=== PATIENT | female | born 1980 | race African-American/Black ===

== ENCOUNTER 2017-08-15 04:22 | Emergency (ER) | payer OTHER ==
[2017-08-15] MEDS ORDERED: diphenhydrAMINE 50 MG CAP ONE (04:54)
== END 2017-08-15 05:25 | disposition home or self-care (01) ==
LOC: ERS 04:22
DX: K02.9 Dental caries, unspecified (principal); I10 Essential (primary) hypertension; F41.9 Anxiety disorder, unspecified; Z87.891 Personal history of nicotine dependence; Z79.899 Other long term (current) drug therapy
CPT/HCPCS: 99283

== ENCOUNTER 2017-08-20 11:43 | Emergency (ER) | payer OTHER ==
[2017-08-20 13:12] LABS: ALT (SGPT) 10 U/L (8-55); AST (SGOT) 16 U/L (5-34); Albumin 4.4 g/dL (3.5-5.0); Alkaline Phosphatase 72 U/L (40-150); Anion Gap 13 mmol/L (10-20); BUN (Urea Nitrogen) 9 mg/dL (7.0-18.7); Bilirubin, Total 0.5 mg/dL (0.2-1.2); Calc. Creatinine Clearance 0 mL/min (70-130); Calcium 9.9 mg/dL (7.8-10.44); Carbon Dioxide 25 mmol/L (22-29); Chloride 105 mmol/L (98-107); Estimated GFR-MDRD Greater than 90; Globulin 4.1 g/dL (2.4-3.5); Glucose 92 mg/dL (70-105); Potassium 3.4 mmol/L (3.5-5.1); Protein, Total 8.5 g/dL (6.0-8.3); Sodium 140 mmol/L (136-145)
[2017-08-20 13:17] LABS: Hemoglobin 10.4 g/dL (12.0-16.0); Mean Corpuscular HGB CONC 31.7 g/dL (32.0-36.0); Mean Corpuscular Hemoglobin 22.4 pg (27.0-31.0); Mean Corpuscular Volume 70.8 fl (81.0-99.0); Mean Platelet Volume 8.2 fL (7.4-10.4); Platelet Count 292 thou/uL (130-400); RBC Distribution Width 15.4 % (11.5-14.5); Red Blood Cell (RBC) Count 4.64 mill/uL (4.20-5.40); White Blood Cell (WBC) Count 6.4 thou/uL (4.8-10.8)
[2017-08-20 13:28] LABS: #Eosinphils 0.1 thou/uL (0.0-0.7); #Lymphocytes 1.5 thou/uL (1.20-3.40); #Monocytes 0.4 thou/uL (0.11-0.59); #Neutrophils 4.4 thou/uL (1.40-6.50); %Basophils 0.3 % (0.0-1.0); %Eosinophils 0.8 % (0.0-10.0); %Lymphocytes 23.3 % (21.0-51.0); %Monocytes 6.1 % (0.0-10.0); %Neutrophils 69.4 % (42.0-75.0); Anisocytosis SLIGHT = 6-15 cells (100X) (0-5/hpf); Hypochromia SLIGHT = 6-15 cells (100X) (0-5/hpf); MDiff Complete? YES; Microcytosis SLIGHT = 6-15 cells (100X) (0-5/hpf); Ovalocytes SLIGHT = 2-5 cells (100X) (0-1/hpf); PLT Morphology Comment Appears Adequate
== END 2017-08-20 13:47 | disposition home or self-care (01) ==
LOC: ERS 11:43
DX: K08.89 Other specified disorders of teeth and supporting structures (principal); D64.9 Anemia, unspecified; I10 Essential (primary) hypertension; F41.9 Anxiety disorder, unspecified; Z87.891 Personal history of nicotine dependence
CPT/HCPCS: 36415; 80053; 85025

== ENCOUNTER 2017-08-21 08:15 | Emergency (ER) | payer OTHER ==
[2017-08-21] MEDS ORDERED: Ketorolac Tromethamine 60 MG/2 ML VIAL ONE (09:04)
[2017-08-21] MEDS ORDERED: Acetaminophen 500 MG TAB ONE (09:04)
[2017-08-21] MEDS ORDERED: Acetaminophen 325 MG/10.15 ML UDCUP ONE (10:02)
== END 2017-08-21 10:15 | disposition home or self-care (01) ==
LOC: ERS 08:15
DX: K02.9 Dental caries, unspecified (principal); K03.81 Cracked tooth; I10 Essential (primary) hypertension; F41.9 Anxiety disorder, unspecified; D64.9 Anemia, unspecified; Z87.891 Personal history of nicotine dependence; Z79.899 Other long term (current) drug therapy; Z71.6 Tobacco abuse counseling
CPT/HCPCS: 36415; 80053; 85025; 96372; 99283; 99406; J1885

== ENCOUNTER 2017-09-16 19:18 | Emergency (ER) | payer OTHER ==
[2017-09-16] MEDS ORDERED: Ketorolac Tromethamine 30 MG/ML VIAL ONE (22:37)
== END 2017-09-16 23:06 | disposition home or self-care (01) ==
LOC: ERS 19:18
DX: K02.9 Dental caries, unspecified (principal); D64.9 Anemia, unspecified; I10 Essential (primary) hypertension; F41.9 Anxiety disorder, unspecified; Z87.891 Personal history of nicotine dependence; Z79.899 Other long term (current) drug therapy
CPT/HCPCS: 96372; J1885

== ENCOUNTER 2017-12-09 02:21 | Emergency (ER) | payer OTHER, SELFPAY | END 2017-12-09 02:47 | disposition home or self-care (01) | LOC: ERS 02:21 | DX: A69.1 Other Vincent's infections (principal); F41.9 Anxiety disorder, unspecified; D64.9 Anemia, unspecified; I10 Essential (primary) hypertension; E51.9 Thiamine deficiency, unspecified; Z87.891 Personal history of nicotine dependence | CPT/HCPCS: 99283 ==

== ENCOUNTER 2018-01-30 04:13 | Emergency (ER) | payer SELFPAY ==
[2018-01-30] MEDS ORDERED: Ketorolac Tromethamine 30 MG/ML VIAL ONE (04:53)
[2018-01-30] MEDS ORDERED: Lidocaine Viscous Sol 2% 15 ml UD Cup ONE (05:16)
== END 2018-01-30 05:21 | disposition home or self-care (01) ==
LOC: ERS 04:13
DX: K02.9 Dental caries, unspecified (principal); I10 Essential (primary) hypertension; D64.9 Anemia, unspecified; E51.9 Thiamine deficiency, unspecified; Z87.891 Personal history of nicotine dependence
CPT/HCPCS: 96372; J1885

== ENCOUNTER 2018-07-27 20:05 | Emergency (ER) | payer SELFPAY ==
[2018-07-27] MEDS ORDERED: Ketorolac Tromethamine 60 MG/2 ML VIAL ONE (20:48)
[2018-07-27 20:59] LABS: #Eosinphils 0.1 thou/uL (0.0-0.7); #Lymphocytes 0.9 thou/uL (1.20-3.40); #Monocytes 0.2 thou/uL (0.11-0.59); #Neutrophils 3.9 thou/uL (1.40-6.50); %Basophils 0.1 % (0.0-1.0); %Eosinophils 1.3 % (0.0-10.0); %Lymphocytes 17.7 % (21.0-51.0); %Monocytes 4.2 % (0.0-10.0); %Neutrophils 76.6 % (42.0-75.0); Hemoglobin 10.9 g/dL (12.0-16.0); Mean Corpuscular HGB CONC 32.7 g/dL (32.0-36.0); Mean Corpuscular Hemoglobin 27.6 pg (27.0-31.0); Mean Corpuscular Volume 84.4 fL (78.0-98.0); Platelet Count 279 thou/uL (130-400); RBC Distribution Width 12.8 % (11.5-14.5); Red Blood Cell (RBC) Count 3.94 mill/uL (4.20-5.40)
[2018-07-27 21:07] LABS: Anion Gap 11 mmol/L (10-20); BUN (Urea Nitrogen) 7 mg/dL (7.0-18.7); Calc. Creatinine Clearance 0 mL/min (70-130); Calcium 9.3 mg/dL (7.8-10.44); Carbon Dioxide 24 mmol/L (22-29); Chloride 106 mmol/L (98-107); Estimated GFR-MDRD Greater than 90; Glucose 106 mg/dL (70-105); Potassium 3.4 mmol/L (3.5-5.1); Sodium 138 mmol/L (136-145)
[2018-07-27 21:08] LABS: BHCG - Serum Negative (NEGATIVE); Pregs Control Background? CLEAR/WHITE (CLR/WHITE); Pregs Control Bar Appear? YES (CONTROL BAR)
== END 2018-07-27 21:28 | disposition home or self-care (01) ==
LOC: ERS 20:05
DX: K02.9 Dental caries, unspecified (principal); D64.89 Other specified anemias; I10 Essential (primary) hypertension; F41.9 Anxiety disorder, unspecified; E51.9 Thiamine deficiency, unspecified; Z87.891 Personal history of nicotine dependence
CPT/HCPCS: 36415; 80048; 84703; 85025; 96372; J1885

== ENCOUNTER 2019-01-09 12:17 | Outpatient (CLI) | payer MEDICAID ==
--- NOTE | 2019-01-09 13:17 | ULT ---
Thyroid ultrasound: 01/09/2019 COMPARISON: 09/05/2015 HISTORY: Thyroid nodule TECHNIQUE: Multiplanar grayscale sonographic imaging of the thyroid gland obtained. FINDINGS: Thyroid isthmus measures 2 mm in AP dimension. The right lobe measures 5.7 x 2.9 x 2.9 cm and the left lobe measures 5.1 x 1.6 x 1.3 cm. No nodule i s noted within the isthmus or left lobe. There is a dominant primarily solid but partially cystic heterogeneous nodule within the right lobe o f the thyroid gland measuring 3.7 right 2.8 x 2.4 cm, increased in size when compared to the prior study at which time it measured approximately 2.0 x 2.4 x 2.7 cm. IMPRESSION: TI-Rads category 4-moderately suspicious. Dominant nodule within the right lobe has grow n since the prior study as well. Given size greater than 1.5 cm, fine-needle aspiration advised.
== END 2019-01-09 12:18 | disposition home or self-care (01) ==
LOC: BICULT 12:17
PROVIDERS: ATTEND Internal Medicine
DX: E04.1 Nontoxic single thyroid nodule (principal)
CPT/HCPCS: 76536

== ENCOUNTER 2019-11-22 22:03 | Emergency (ER) | payer MEDICAID, SELFPAY ==
[2019-11-22] MEDS ORDERED: Ketorolac Tromethamine 30 MG/ML VIAL ONE (22:44)
== END 2019-11-22 23:16 | disposition home or self-care (01) ==
LOC: ERS 22:03
DX: K04.7 Periapical abscess without sinus (principal); I10 Essential (primary) hypertension; D64.9 Anemia, unspecified; F41.9 Anxiety disorder, unspecified; Z87.891 Personal history of nicotine dependence; Z79.899 Other long term (current) drug therapy
CPT/HCPCS: 96372; 99283; J1885

== ENCOUNTER 2019-12-26 09:03 | Day surgery (SDC) | payer OTHER ==
[~2019-12-26 09:03] MED LIST: Iron Sucrose Complex 250 MG in Sodium Chloride 0.9% 250 ML 250 ML IVPB SCH
[2019-12-26] MEDS ORDERED: Sodium Chloride 0.9% 20 ML ONE (09:09)
[2019-12-26 09:30] VITALS: BP 142/86; TEMP 98.9
== END 2019-12-26 10:56 | disposition home or self-care (01) ==
LOC: ONC/OP 09:03
PROVIDERS: ATTEND Hospitalist
DX: D50.9 Iron deficiency anemia, unspecified (principal)
CPT/HCPCS: 96365; J1756; J7050

== ENCOUNTER 2020-01-22 11:16 | Outpatient (CLI) | payer MEDICAID ==
--- NOTE | 2020-01-22 13:10 | MMO ---
Bilateral MAMMO Bilat Screen [facility]. CLINICAL HISTORY: Patient is 39 years old and is seen for screening. The patient has no family history of breast cancer. The patient has no personal history of cancer. VIEWS: The views performed were: bilateral craniocaudal with tomosynthesis and bilateral mediolateral oblique with tomosynthesis. This study has been interpreted with the assistance of computer-aided detection. MAMMOGRAM FINDINGS: There are scattered fibroglandular densities. There is a nodular density in the left mid breast. In the right breast, there are no suspicious masses, calcifications or areas of architectural distortion. IMPRESSION: FINDING IN THE LEFT BREAST REQUIRES ADDITIONAL EVALUATION. SPOT COMPRESSION IS RECOMMENDED. AN ULTRASOUND EXAM IS RECOMMENDED IF NEEDED. ADDITIONAL IMAGING. THE RESULTS OF THIS EXAM WERE SENT TO THE PATIENT. ACR BI-RADS Category 0 - Incomplete: Need additional imaging evaluation. [facility] will notify the patient of the need for additional imaging services. MAMMOGRAPHY NOTE: 1. A negative mammogram report should not delay a biopsy if a dominant of clinically suspicious mass is present. 2. Approximately 10% to 15% of breast cancers are not detected by mammography. 3. Adenosis and dense breasts may obscure an underlying neoplasm. Reported by: KULWANT SOUZA MD Electonically Signed: [id number]
== END 2020-01-22 11:17 | disposition home or self-care (01) ==
LOC: BICMAMMO 11:16
PROVIDERS: ATTEND Hospitalist
DX: Z12.31 Encounter for screening mammogram for malignant neoplasm of breast (principal)
CPT/HCPCS: 77063; 77067

== ENCOUNTER 2020-02-12 09:44 | Outpatient (CLI) | payer MEDICAID ==
--- NOTE | 2020-02-12 10:25 | MMO ---
Left Breast MAMMO Unilat Diag [facility]. CLINICAL HISTORY: Patient is 39 years old and is seen for additional evaluation requested from prior study. The patient has no family history of breast cancer. The patient has no personal history of cancer. VIEWS: The views performed were: left craniocaudal spot compression with tomosynthesis; left mediolateral oblique spot compression with tomosynthesis; and left mediolateral with tomosynthesis. FILMS COMPARED: The present examination has been compared to prior imaging studies performed at [facility] on 01/22/2020 and 02/12/2020. This study has been interpreted with the assistance of computer-aided detection. MAMMOGRAM FINDINGS: There are scattered fibroglandular densities. Additional views were performed. Left breast nodule persists and appears well circumscribed. It is not visualized on US. IMPRESSION: FINDING IN THE LEFT BREAST IS PROBABLY BENIGN. FOLLOW-UP IN 6 MONTHS IS RECOMMENDED. THE RESULTS OF THIS EXAM WERE SENT TO THE PATIENT. ACR BI-RADS Category 3 - Probably benign finding - short interval follow-up suggested. [facility] will notify the patient of the need for additional imaging services. This exam was interpreted in consultation with Dr Ramon Don who concurs. D/W pt in person @ 10:20 am. MAMMOGRAPHY NOTE: 1. A negative mammogram report should not delay a biopsy if a dominant of clinically suspicious mass is present. 2. Approximately 10% to 15% of breast cancers are not detected by mammography. 3. Adenosis and dense breasts may obscure an underlying neoplasm. Reported by: KULWANT SOUZA MD Electonically Signed: [id number]
--- NOTE | 2020-02-12 10:34 | ULT ---
LIMITED LEFT BREAST ULTRASOUND: HISTORY: Left breast nodule. FINDINGS: Correlation is made with mammograms of 01/22/2020 and 02/12/2020. Sonographic evaluation of the retroareolar region of the left breast demonstrates no abnormality. Th e nodule seen on the mammogram is not visualized. IMPRESSION: BIRADS category 3 - probably benign findings. A 6-month followup left diagnostic mammogram is recomm ended. This exam was interpreted in consultation with Dr. Ramon Don who concurs. POS: OFF
== END 2020-02-12 09:45 | disposition home or self-care (01) ==
LOC: BICMAMMO 09:44
PROVIDERS: ATTEND Hospitalist
DX: R92.2 Inconclusive mammogram (principal); N63.20 Unspecified lump in the left breast, unspecified quadrant
CPT/HCPCS: G0279

== ENCOUNTER 2020-04-04 05:22 | Emergency (ER) | payer MEDICAID, SELFPAY ==
[2020-04-04] MEDS ORDERED: Ketorolac Tromethamine 30 MG/ML VIAL ONE (05:38)
[2020-04-04] MEDS ORDERED: Metoclopramide HCl 10 MG/2 ML VIAL ONE (05:38)
== END 2020-04-04 06:08 | disposition home or self-care (01) ==
LOC: ERS 05:22
DX: K08.89 Other specified disorders of teeth and supporting structures (principal); R51.9 Headache, unspecified; Z79.899 Other long term (current) drug therapy; I10 Essential (primary) hypertension; D64.9 Anemia, unspecified; Z87.891 Personal history of nicotine dependence
CPT/HCPCS: 96372; 99284; J1885; J2765

== ENCOUNTER 2022-04-14 09:10 | Outpatient (CLI) | payer MEDICAID | END 2022-04-14 09:11 | disposition home or self-care (01) | LOC: BICMAMMO 09:10 | PROVIDERS: ATTEND Student in an Organized Health Care Education/Training Program | DX: R92.8 Other abnormal and inconclusive findings on diagnostic imaging of breast (principal); N63.20 Unspecified lump in the left breast, unspecified quadrant | CPT/HCPCS: 77066; G0279 ==